=== PATIENT | male | born 1995 | race Two or more races ===

== ENCOUNTER 2019-02-22 20:52 | Emergency (ER) | payer SELFPAY ==
[~2019-02-22] VITALS: Ht 182.9 cm; Wt 81.6 kg
[2019-02-22 20:53] VITALS: BP 123/64
[2019-02-22] MEDS ORDERED: AMOXICILLIN/K CLAV 875/125MG TABLET. PO ONE (21:15)
--- NOTE | 2019-02-22 21:42 | PHYS DOC ---
Past Medical History Past Medical History: Bipolar, Depression, Schizophrenia Drug Use: Methamphetamine Adult General Chief Complaint Chief Complaint: ACCIDENTAL INGESTION HPI HPI Patient is a 23 year old male with past medical history of Bipolar, Schizophrenia, and Suicidal Ideation who presents after ingesting approximately 15 tablets of Aleve. Patient states he did this because of severe tooth pain that wasn't responding to normal dosages of Aleve. Patient is needing medical clearance for admission to [facility] due to depression and methamphetamine abuse. Adri ent denies any current suicidal ideation or audiovisual hallucinations. He reports not taking any of his psychiatric medications for the last month. He denies any abdominal pain, nausea, vomiting, fevers, or chills. He reports severe, constant, sharp tooth pain primarily from his left, mandibular molars. Review of Systems Review of Systems Constitutional: Denies fever or chills Eyes: Denies redness or eye pain HENT: Denies nasal congestion or sore throat Respiratory: Denies cough or shortness of breath Cardiovascular: Denies chest pain or palpitations GI: Denies abdominal pain, nausea, or vomiting : Denies dysuria or hematuria Musculoskeletal: Severe tooth pain (left, mandibular molars) Integument: Reports painful blisters on soles of feet b/l. Neurologic: Denies headache, focal weakness or sensory changes Complete systems were reviewed and found to be within normal limits, except as documented in this note. Current Medications Current Medications Current Medications Medications (Trade) Dose Ordered Sig/Citlalli Start Time Stop Time Status Last Admin Dose Admin Amoxicillin/ Clavulanate Potassium (Augmentin 875/ 125mg) 1 tab 1X ONCE 02/22/19 21:15 02/22/19 21:21 DC 02/22/19 22:00 1 TAB Allergies Allergies Allergies Coded Allergies Type Severity Reaction Last Updated Verified No Known Drug Allergies 02/22/19 No Physical Exam Physical Exam Constitutional: Sleepy 23 yo male Eyes: PERRL, EOMI, conjunctiva normal, no discharge Neck: Normal range of motion, no tenderness, supple Cardiovascular: Heart rate normal, regular rhythm Lungs & Thorax: Bilateral breath sounds clear to auscultation, no wheezing Abdomen: Soft, no tenderness Skin: Warm, dry, no erythema, no rash. Superficial blisters on soles of feet b/l. Back: No tenderness, no CVA tenderness Extremities: No tenderness, ROM intact, no edema Neurologic: Alert and oriented X 3, normal motor function, normal sensory function, no focal deficits noted Psychologic: Affect normal, judgement normal, mood normal Current Patient Data Vital Signs Vital Signs Date Time Temp Pulse Resp B/P (MAP) Pulse Ox O2 Delivery O2 Flow Rate FiO2 02/22/19 20:53 98.6 95 20 123/64 (83) 96 Room Air 98.6 Lab Values Laboratory Tests Test 02/22/19 21:43 White Blood Count 7.8 x10^3/uL (4.0-11.0) Red Blood Count 4.53 x10^6/uL (4.30-5.70) Hemoglobin 14.3 g/dL (13.0-17.5) Hematocrit 40.6 % (39.0-53.0) Mean Corpuscular Volume 90 fL (79-100) Mean Corpuscular Hemoglobin 32 pg (25-35) Mean Corpuscular Hemoglobin Concent 35 g/dL (31-37) Red Cell Distribution Width 13.2 % (11.5-14.5) Platelet Count 201 x10^3/uL (140-400) Neutrophils (%) (Auto) 65 % (31-73) Lymphocytes (%) (Auto) 21 % (24-48) L Monocytes (%) (Auto) 9 % (0-9) Eosinophils (%) (Auto) 5 % (0-3) H Basophils (%) (Auto) 1 % (0-3) Neutrophils # (Auto) 5.0 x10^3uL (1.8-7.7) Lymphocytes # (Auto) 1.7 x10^3/uL (1.0-4.8) Monocytes # (Auto) 0.7 x10^3/uL (0.0-1.1) Eosinophils # (Auto) 0.4 x10^3/uL (0.0-0.7) Basophils # (Auto) 0.1 x10^3/uL (0.0-0.2) Prothrombin Time 12.4 SEC (11.7-14.0) Prothrombin Time INR 1.0 (0.8-1.1) PTT 26 SEC (24-38) Sodium Level 141 mmol/L (136-145) Potassium Level 4.0 mmol/L (3.5-5.1) Chloride Level 105 mmol/L (98-107) Carbon Dioxide Level 27 mmol/L (21-32) Anion Gap 9 (6-14) Blood Urea Nitrogen 11 mg/dL (8-26) Creatinine 0.8 mg/dL (0.7-1.3) Estimated GFR (Cockcroft-Gault) 122.0 BUN/Creatinine Ratio 14 (6-20) Glucose Level 99 mg/dL (70-99) Calcium Level 8.5 mg/dL (8.5-10.1) Magnesium Level 2.2 mg/dL (1.8-2.4) Total Bilirubin 0.6 mg/dL (0.2-1.0) Aspartate Amino Transferase (AST) 19 U/L (15-37) Alanine Aminotransferase (ALT) 34 U/L (16-63) Alkaline Phosphatase 82 U/L (46-116) Total Protein 6.2 g/dL (6.4-8.2) L Albumin 4.0 g/dL (3.4-5.0) Albumin/Globulin Ratio 1.8 (1.0-1.7) H Salicylates Level 3.1 mg/dL (2.8-20.0) Salicylate Last Dose Date Unknown Salicylate Last Dose Time Unknown Acetaminophen Level < 2 mcg/ml (10-30) L Acetaminophen Last Dose Date Unknown Acetaminophen Last Dose Time Unknown Ethyl Alcohol Level < 10 mg/dL (0-10) Laboratory Tests 02/22/19 21:43 Laboratory Tests 02/22/19 21:43 EKG EKG 02/22/2019 @21:30 shows normal sinus rhythm at 91bpm. QRS = 98ms. QT = 348ms. QTc = 430ms. No ST elevations. [] Radiology/Procedures Radiology/Procedures [] Course & Med Decision Making Course & Med Decision Making 23-year-old male presents to the ED after ingesting approximately 15 L due to tooth pain. Patient seeking medical clearance to be admitted to our [facility]. He currently denies any suicidal ideation or artery visual hallucinations. Abdominal exam reveals no tenderness. Patient admits to history of methamphetamine abuse. Augmentin administered for dental infection prophylaxis. Poison control contacted. Acetaminophen, Salicylate, and ETOH levels all obtained and were reassuring. Patient stable for discharge with outpatient follow-up with PCP. Discussed findings and plan with patient, who acknowledges understanding and agreement. Dragon Disclaimer Dragon Disclaimer This electronic medical record was generated, in whole or in part, using a voice recognition dictation system. Departure Departure Impression: Primary Impression: Naproxen overdose Additional Impressions: Poor dentition Methamphetamine abuse Disposition: 01 HOME, SELF-CARE Condition: STABLE Referrals: NO PCP (PCP) Patient Instructions: Alcohol and Drug Addiction, Finding Treatment, Dental Caries-Brief, Methamphetamine Abuse, Complications, Overdose, Accidental Additional Instructions: Presents directly to [facility] for crisis center to help with your Methamphetamine abuse Scripts Chlorhexidine Gluconate (PERIDEX) 15 Ml Mouthwash 15 ML PO BID, #946 ML Prov: ASHLEY MART DO 02/22/19 Amoxicillin/Potassium Clav (AUGMENTIN 875-125 TABLET) 1 Each Tablet 1 TAB PO BID, #14 TAB Prov: ASHLEY MART DO 02/22/19 Problem Qualifiers Primary Impression: Naproxen overdose Encounter type: initial encounter Injury intent: accidental or unintentional Qualified Codes: T39.311A - Poisoning by propionic acid derivatives, accidental (unintentional), initial encounter ASHLEY MART DO Feb 22, 2019 21:42
[2019-02-22 22:04] LABS: BASO # 0.1 x10^3/uL (0.0-0.2); BASO % 1 % (0-3); EOS # 0.4 x10^3/uL (0.0-0.7); EOS % 5 % (0-3); HEMATOCRIT 40.6 % (39.0-53.0); HEMOGLOBIN 14.3 g/dL (13.0-17.5); LYMPH # 1.7 x10^3/uL (1.0-4.8); LYMPH % 21 % (24-48); MEAN CORPUSCULAR HEMOGLOBIN 32 pg (25-35); MEAN CORPUSCULAR HGB CONC 35 g/dL (31-37); MEAN CORPUSCULAR VOLUME 90 fL (79-100); MONO # 0.7 x10^3/uL (0.0-1.1); MONO % 9 % (0-9); NEUT % 65 % (31-73); PLATELET COUNT 201 x10^3/uL (140-400); RED BLOOD COUNT 4.53 x10^6/uL (4.30-5.70); RED CELL DISTRIBUTION WIDTH 13.2 % (11.5-14.5); WHITE BLOOD COUNT 7.8 x10^3/uL (4.0-11.0)
[2019-02-22 22:07] LABS: PROTHROMBIN TIME PATIENT 12.4 SEC (11.7-14.0)
[2019-02-22 22:10] LABS: CALCIUM 8.5 mg/dL (8.5-10.1); CREATININE 0.8 mg/dL (0.7-1.3)
[2019-02-22 22:14] LABS: ACETAMIN < 2 mcg/ml (10-30); ETHANOL < 10 mg/dL (0-10); SALIC 3.1 mg/dL (2.8-20.0)
[2019-02-22 22:16] LABS: ALBUMIN/GLOBULIN RATIO 1.8 (1.0-1.7); MAGNESIUM 2.2 mg/dL (1.8-2.4); TOTAL BILIRUBIN 0.6 mg/dL (0.2-1.0); TOTAL PROTEIN 6.2 g/dL (6.4-8.2)
[2019-02-22] MEDS ORDERED: AMOX1TAB61 PO (23:15)
[2019-02-22] MEDS ORDERED: CHLO15MO2 PO (23:15)
--- NOTE | 2019-02-23 07:37 | EKG ---
[facility] [address] [place] [address] Test Date: 2019-02-22 Test Time: 21:30:37 Pat Name: RUTH STAHL Department: Room: Gender: M Supervisor Seaming: : 1995 Requested By: ASHLEY MART Order Number: [id number] Reading MD: Measurements Intervals [place] Rate: 91 P: 42 [place]: 144 QRS: 71 QRSD: 98 T: 36 QT: 348 QTc: 430 Interpretive Statements SINUS RHYTHM QRS(T) CONTOUR ABNORMALITY CONSISTENT WITH INFERIOR MYOCARDIAL DAMAGE ABNORMAL ECG RI6.01 No previous ECG available for comparison
== END 2019-02-22 23:30 | disposition home or self-care (01) ==
LOC: ER 20:52
DX: T39.311A Poisoning by propionic acid derivatives, accidental (unintentional), initial encounter (principal); S90.822A Blister (nonthermal), left foot, initial encounter; S90.821A Blister (nonthermal), right foot, initial encounter; F15.20 Other stimulant dependence, uncomplicated; K00.6 Disturbances in tooth eruption; F31.9 Bipolar disorder, unspecified; X58.XXXA Exposure to other specified factors, initial encounter; Y93.89 Activity, other specified; Y92.89 Other specified places as the place of occurrence of the external cause; Y99.8 Other external cause status
CPT/HCPCS: 36415; 80053; 80329; 83735; 85025; 85610; 85730; 93005; 99285; G0480